=== PATIENT | female | born 1945 | race African-American/Black ===

== ENCOUNTER 2023-11-23 10:50 | Outpatient (CLI) | payer OTHER, SELFPAY ==
--- NOTE | ~2023-11-23 | MR_ITS ---
EXAMINATION: MR abdomen wo/w con DATE: 11/23/2023 12:27 INDICATION: Renal mass TECHNIQUE: Magnetic resonance imaging (MRI) of the abdomen was performed without and with 17 mL Multi marianela intravenous contrast. Sequences included coronal T2-weighted SS-FSE, coronal and axial FS 2D-F IESTA, axial STIR FSE, axial T2-weighted SS-FSE, axial T2-weighted FS SS-FSE, axial diffusion-weighte d SE, axial dual-echo T1-weighted FSPGR, and axial and coronal T1-weighted LAVA. Postcontrast axial T 1-weighted LAVA images were obtained in a time course. Postcontrast coronal T1-weighted LAVA images w ere obtained. COMPARISON: None. FINDINGS: Borderline heart size. No pericardial or pleural effusion. Liver, gallbladder, pancreas and bilateral adrenal glands are normal. There are bilateral enhancing renal masses the larger involving the mid a nd upper pole of the left kidney measuring 13.6 x 12.2 x 9.5 cm . There is a smaller mass at the lowe r pole of the right kidney measures 5.3 x 5.0 x 5.1 cm. 1.4 cm Bosniak 2F lesion at the lower pole th e right kidney with single thin internal septation with discernible enhancement. There are few additi onal simple appearing T2 hyperintense nonenhancing renal cysts. There are prominent draining left per irenal collateral vessels. There is a 2.5 x 1.6 m mass situated between the anterior margin of the ca udal tip of the spleen and the lateral margin of the left renal mass which appears to follow the sign al intensity enhancement of the spleen on all sequences most likely a small splenule. There are 2 lik monika complex cystic lesions in the spleen which demonstrate mild enhancement along septations separati ng lobular appearing T2 hyperintense cystic components. The larger measures 2.0 cm centrally in the s pleen with a second 1.4 cm lesion at the dome of the spleen. There are couple additional more solid e nhancing masslike lesions in the spleen which demonstrate intense early arterial phase enhancement, t he larger measuring 1.8 cm maximal diameter near the splenic hilum with subtle persistent hyperenhanc ement on the final post contrast images and the second located more anterolaterally in the spleen franco suring 1.5 cm which equilibrates to the surrounding spleen on the delayed images. Visualized portions of bowels are unremarkable with no obstruction. There is a T2 hyperintense nonenhancing cystic lesio n measuring 2.3 x 2.3 x 4.9 cm which surrounds the enhancing left gonadal vein. No pathologically enl arged abdominal or upper pelvic lymphadenopathy. Mild thoracic and lumbar spondylosis. Normal bone ma rrow signal throughout with no pathologic marrow replacing process. IMPRESSION: 1. Bilateral enhancing renal masses measuring 13.6 mm maximal diameter at the mid to upper left kidne y and 5.3 cm at the lower pole the right kidney with renal cell carcinomas. There is an additional 1. 4 cm Bosniak 2F lesion also at the lower pole of the right kidney. 2. A few indeterminate splenic lesions 2 of which appear multiloculated cystic most suggestive of lym phangiomas and 2 which with avid arterial phase enhancement, one of which orbits and the second remai n persistently hyperenhancing which are more nonspecific with differential including hemangiomas, ham artoma or potentially metastases. Reviewed, dictated and finalized at location B. [facility] IMPRESSION: 1. Bilateral enhancing renal masses measuring 13.6 mm maximal diameter at the m id to upper left kidney and 5.3 cm at the lower pole the right kidney with abran l cell carcinomas. There is an additional 1.4 cm Bosniak 2F lesion also at the lower pole of the right kidney. 2. A few indeterminate splenic lesions 2 of which appear multiloculated cystic most suggestive of lymphangiomas and 2 which with avid arterial phase enhanceme nt, one of which orbits a
== END 2023-11-23 10:51 | disposition home or self-care (01) ==
PROVIDERS: Visit Provider Urology
DX: N28.89 Other specified disorders of kidney and ureter (principal)
CPT/HCPCS: 74183; A9577